=== PATIENT | female | born 1980 | race Caucasian/White ===

== ENCOUNTER 2017-08-27 13:52 | Emergency (ER) | payer MEDICAID ==
[2017-08-27] MEDS ORDERED: IBUPROFEN 600 MG TAB PO STA (14:05)
[2017-08-27] MEDS ORDERED: ACETAMINOPHEN TAB 325 MG TAB PO STA (14:05)
[2017-08-27] MEDS ORDERED: MECLIZINE 12.5 MG TAB PO STA (14:07)
--- NOTE | 2017-08-27 14:14 | ED ---
General Adult HPI - General Chief complaint: Upper Respiratory Infection Stated complaint: Cough Time Seen by Provider: 08/27/17 13:54 Source: patient Mode of arrival: ambulatory - History of Present Illness Initial comments: 36-year-old female patient presented to the emergency department today for evaluation of cough and dizziness 2 weeks. Patient states that he has had a persistent, nagging cough for the last 2 weeks. States that she has coughing episodes where she is unable to stop and her chest becomes very tight. She states that the dizziness is unrelated to the coughing, states that she could just be sitting down doing nothing and not moving when the dizziness will hit her. States that she feels like the room is spinning. States that she gets frequent episodes every day. She denies any ear pain, ear congestion, or ear drainage. She denies any nasal congestion or sore throat throughout the history of the cough. Denies any known fevers. States that she feels generally rundown and unwell. Patient denies any recent rash, shortness breath, chest pain, abdominal pain, nausea, vomiting, diarrhea, constipation, back pain , numbness, tingling, hematuria, dysuria, urinary urgency, urinary frequency, headache, visual changes, or any other complaints. Denies any chance of , states she had a negative test a couple days ago. - Related Data Previous Rx's Medication Instructions Recorded Albuterol Sulfate [Proair Hfa] 1 - 2 puff INHALATION Q6HR PRN #1 08/27/17 inhaler Azithromycin [Zithromax Z-pack] 0 mg PO DIRECTED #6 tab 08/27/17 Benzonatate [Tessalon Perles] 200 mg PO TID PRN #20 capsule 08/27/17 predniSONE 50 mg PO DAILY #5 tablet 08/27/17 Allergies Allergy/AdvReac Type Severity Reaction Status Date / Time No Known Allergies Allergy Verified 08/27/17 14:47 Review of Systems ROS Statement: Those systems with pertinent positive or pertinent negative responses have been documented in the HPI. ROS Other: All systems not noted in ROS Statement are negative. Past Medical History Past Medical History: No Reported History History of Any Multi-Drug Resistant Organisms: None Reported Past Surgical History: No Surgical Hx Reported Past Psychological History: No Psychological Hx Reported Smoking Status: Former smoker Past Alcohol Use History: None Reported Past Drug Use History: None Reported General Exam General appearance: alert, in no apparent distress, other (physical well- developed, well-nourished adult female patient in no acute distress. Vital signs upon presentation are temperature 100.3F, pulse 1:30, respirations 18, blood pressure 164/94, pulse ox 99% on room air.) Eye exam: Present: normal appearance, PERRL, EOMI. Absent: scleral icterus, conjunctival injection, periorbital swelling ENT exam: Present: normal exam, mucous membranes moist, TM's normal bilaterally. Absent: normal oropharynx (pharyngeal erythema) Neck exam: Present: normal inspection. Absent: tenderness, meningismus, lymphadenopathy Respiratory exam: Present: normal lung sounds bilaterally. Absent: respiratory distress, wheezes, rales, rhonchi, stridor Cardiovascular Exam: Present: normal rhythm, tachycardia, normal heart sounds. Absent: systolic murmur, diastolic murmur, rubs, gallop, clicks GI/Abdominal exam: Present: soft, normal bowel sounds. Absent: distended, tenderness, guarding, rebound, rigid Neurological exam: Present: alert, oriented X3, CN II-XII intact Psychiatric exam: Present: normal affect, normal mood Skin exam: Present: warm, dry, intact, normal color. Absent: rash Course Vital Signs 08/27/17 08/27/17 08/27/17 13:55 15:07 15:12 Temperature 100.3 F H 98.6 F Pulse Rate 130 H 108 H Respiratory 20 20 Rate Blood Pressure 164/94 132/82 O2 Sat by Pulse 99 98 Oximetry 08/27/17 08/27/17 15:54 16:47 Temperature 98.4 F Pulse Rate 91 90 Respiratory 18 16 Rate Blood Pressure 143/88 122/75 O2 Sat by Pulse 99 98 Oximetry EKG Findings - EKG Comments: EKG Findings:: EKG obtained at 1431 shows sinus tachycardia with a possible inferior infarct, anterior infarct, and ST and T-wave abnormalities. No previous EKGs for comparison. Medical Decision Making - Medical Decision Making 36-year-old female patient presented to the emergency department today for evaluation of cough 2 weeks. Physical examination did reveal a dry hacking cough throughout exam. Lungs are clear to auscultation with good air movement. Labs reviewed and did reveal a low TSH level but T4 levels were normal. Patient was mildly febrile upon arrival. She did have some tachycardia. Vital signs did improve with antipyretics and IV fluids. Dizziness improved on him marginally. Patient will be given azithromycin for a probable bacterial bronchitis. She'll be given a course of steroids, Tessalon Perles, and a Pro Air inhaler for symptom relief. She is instructed to follow-up with her primary care doctor for recheck in 1-2 days. She is instructed to return here immediately for any new, worsening, or concerning symptoms. She verbalizes understanding and agrees with this plan. - Lab Data Result diagrams: 08/27/17 14:19 08/27/17 14:19 Lab Results 08/27/17 08/27/17 08/27/17 Range/Units 13:52 13:52 14:19 WBC (3.8-10.6) k/uL RBC (3.80-5.40) m/uL Hgb (11.4-16.0) gm/dL Hct (34.0-46.0) % MCV (80.0-100.0) fL MCH (25.0-35.0) pg MCHC (31.0-37.0) g/dL RDW (11.5-15.5) % Plt Count (150-450) k/uL Neutrophils % % Lymphocytes % % Monocytes % % Eosinophils % % Basophils % % Neutrophils # (1.3-7.7) k/uL Lymphocytes # (1.0-4.8) k/uL Monocytes # (0-1.0) k/uL Eosinophils # (0-0.7) k/uL Basophils # (0-0.2) k/uL Sodium (137-145) mmol/L Potassium (3.5-5.1) mmol/L Chloride (98-107) mmol/L Carbon Dioxide (22-30) mmol/L Anion Gap mmol/L BUN (7-17) mg/dL Creatinine (0.52-1.04) mg/dL Est GFR (MDRD) Af Amer (>60 ml/min/1.73 sqM) Est GFR (MDRD) Non-Af (>60 ml/min/1.73 sqM) Glucose (74-99) mg/dL Plasma Lactic Acid Luisito (0.7-2.0) mmol/L Calcium (8.4-10.2) mg/dL Total Bilirubin (0.2-1.3) mg/dL AST (14-36) U/L ALT (9-52) U/L Alkaline Phosphatase (38-126) U/L Total Protein (6.3-8.2) g/dL Albumin (3.5-5.0) g/dL TSH (0.465-4.680) mIU/L Free T4 (0.78-2.19) ng/dL Urine Color Light Yellow Urine Appearance Clear (Clear) Urine pH 6.5 (5.0-8.0) Ur Specific [place] 1.004 (1.001-1.035) Urine Protein Negative (Negative) Urine Glucose (UA) Negative (Negative) Urine Ketones Negative (Negative) Urine Blood Negative (Negative) Urine Nitrite Negative (Negative) Urine Bilirubin Negative (Negative) Urine Urobilinogen <2.0 (<2.0) mg/dL Ur Leukocyte Esterase Negative (Negative) Urine HCG, Qual Not Detected (Not Detectd) Influenza Type A RNA Not Detected (Not Detectd) Influenza Type B (PCR) Not Detected (Not Detectd) 08/27/17 08/27/17 08/27/17 Range/Units 14:19 14:19 14:19 WBC 5.2 (3.8-10.6) k/uL RBC 4.56 (3.80-5.40) m/uL Hgb 13.0 (11.4-16.0) gm/dL Hct 38.6 (34.0-46.0) % MCV 84.7 (80.0-100.0) fL MCH 28.5 (25.0-35.0) pg MCHC 33.6 (31.0-37.0) g/dL RDW 12.7 (11.5-15.5) % Plt Count 176 (150-450) k/uL Neutrophils % 81 % Lymphocytes % 8 % Monocytes % 5 % Eosinophils % 4 % Basophils % 0 % Neutrophils # 4.1 (1.3-7.7) k/uL Lymphocytes # 0.4 L (1.0-4.8) k/uL Monocytes # 0.3 (0-1.0) k/uL Eosinophils # 0.2 (0-0.7) k/uL Basophils # 0.0 (0-0.2) k/uL Sodium 144 (137-145) mmol/L Potassium 3.9 (3.5-5.1) mmol/L Chloride 105 (98-107) mmol/L Carbon Dioxide 25 (22-30) mmol/L Anion Gap 14 mmol/L BUN 8 (7-17) mg/dL Creatinine 0.70 (0.52-1.04) mg/dL Est GFR (MDRD) Af Amer >60 (>60 ml/min/1.73 sqM) Est GFR (MDRD) Non-Af >60 (>60 ml/min/1.73 sqM) Glucose 95 (74-99) mg/dL Plasma Lactic Acid Luisito 1.4 (0.7-2.0) mmol/L Calcium 10.2 (8.4-10.2) mg/dL Total Bilirubin 0.5 (0.2-1.3) mg/dL AST 19 (14-36) U/L ALT 28 (9-52) U/L Alkaline Phosphatase 50 (38-126) U/L Total Protein 8.1 (6.3-8.2) g/dL Albumin 5.0 (3.5-5.0) g/dL TSH 0.267 L (0.465-4.680) mIU/L Free T4 1.45 (0.78-2.19) ng/dL Urine Color Urine Appearance (Clear) Urine pH (5.0-8.0) Ur Specific [place] (1.001-1.035) Urine Protein (Negative) Urine Glucose (UA) (Negative) Urine Ketones (Negative) Urine Blood (Negative) Urine Nitrite (Negative) Urine Bilirubin (Negative) Urine Urobilinogen (<2.0) mg/dL Ur Leukocyte Esterase (Negative) Urine HCG, Qual (Not Detectd) Influenza Type A RNA (Not Detectd) Influenza Type B (PCR) (Not Detectd) - Radiology Data Radiology results: report reviewed, image reviewed Two-view x-ray of the chest shows no focal airspace opacity, pleural effusion, or pneumothorax. The cardiac silhouette size is within normal limits. The osseous structures are intact. Impression by Dr. Pryor shows no acute cardiopulmonary process. Disposition Clinical Impression: Acute bacterial bronchitis, Dizziness Disposition: HOME SELF-CARE Condition: Good Instructions: Acute Bronchitis (ED), Dizziness (ED) Additional Instructions: Increase fluids. Take medications as directed. Rest. Follow-up with her primary care physician for recheck in 1-2 days. Return here immediately for any new, worsening, or concerning symptoms. Prescriptions: Albuterol Sulfate [Proair Hfa] 1 - 2 puff INHALATION Q6HR PRN #1 inhaler PRN Reason: Cough Azithromycin [Zithromax Z-pack] 0 mg PO DIRECTED #6 tab Benzonatate [Tessalon Perles] 200 mg PO TID PRN #20 capsule PRN Reason: Cough predniSONE 50 mg PO DAILY #5 tablet Referrals: Marika Rocha III, MD [Primary Care Provider] - 1-2 days Time of Disposition: 16:28
[2017-08-27] MEDS ORDERED: SODIUM CHLORIDE 0.9% 1,000 ML IV ONE (14:19)
[2017-08-27 14:43] LABS: Basophils % (A) 0 %; Eosinophils # (A) 0.2 k/uL (0-0.7); Eosinophils % (A) 4 %; HCT 38.6 % (34.0-46.0); Lymphocytes # (A) 0.4 k/uL (1.0-4.8); Lymphocytes % (A) 8 %; MCH 28.5 pg (25.0-35.0); MCHC 33.6 g/dL (31.0-37.0); MCV 84.7 fL (80.0-100.0); Mean Platelet Volume 7.1; Monocytes # (A) 0.3 k/uL (0-1.0); Monocytes % (A) 5 %; Neutrophils # (A) 4.1 k/uL (1.3-7.7); Neutrophils % (A) 81 %; Platelet Count 176 k/uL (150-450); RBC 4.56 m/uL (3.80-5.40); RDW 12.7 % (11.5-15.5); WBC 5.2 k/uL (3.8-10.6)
[2017-08-27 14:46] LABS: ALT 28 U/L (9-52); AST 19 U/L (14-36); Alkaline Phosphatase 50 U/L (38-126); Anion Gap 14 mmol/L; Blood Urea Nitrogen 8 mg/dL (7-17); Calcium 10.2 mg/dL (8.4-10.2); Carbon Dioxide 25 mmol/L (22-30); Chloride 105 mmol/L (98-107); Glucose 95 mg/dL (74-99); Potassium 3.9 mmol/L (3.5-5.1); Sodium 144 mmol/L (137-145); Total Bilirubin 0.5 mg/dL (0.2-1.3); Total Protein 8.1 g/dL (6.3-8.2)
--- NOTE | 2017-08-27 14:57 | XR ---
EXAMINATION TYPE: XR chest 2V DATE OF EXAM: 08/27/2017 COMPARISON: NONE HISTORY: Fever TECHNIQUE: Frontal and lateral views of the chest are obtained. FINDINGS: There is no focal air space opacity, pleural effusion, or pneumothorax seen. The cardiac silhouette size is within normal limits. The osseous structures are intact. IMPRESSION: No acute cardiopulmonary process.
[2017-08-27] MEDS ORDERED: methylPREDNISolone SOD SUCCI 125 MG/2 ML VIAL IV STA (15:35)
[2017-08-27 16:02] LABS: T4, Free (Free Thyroxine) 1.45 ng/dL (0.78-2.19)
[2017-08-27 16:09] LABS: Appearance,Urine Clear (Clear); Bilirubin,Urine Negative (Negative); Blood,Urine Negative (Negative); Color,Urine Light Yellow; Glucose,Urine (UA) Negative (Negative); Ketones,Urine Negative (Negative); Leukocyte Esterase,Urine Negative (Negative); Nitrite,Urine Negative (Negative); PH, Urine 6.5 (5.0-8.0); Protein,Urine Negative (Negative); Specific Gravity,Urine 1.004 (1.001-1.035); Urobilinogen,Urine <2.0 mg/dL (<2.0)
[2017-08-27] MEDS ORDERED: BENZONATATE 100 MG CAP PO STA (16:27)
[2017-08-27 16:50] VITALS: BP 122/75; PULSE 90; RESP 16; TEMP 98.4
== END 2017-08-27 16:47 | disposition home or self-care (01) ==
LOC: EC 13:52
DX: J20.8 Acute bronchitis due to other specified organisms (principal); B96.89 Other specified bacterial agents as the cause of diseases classified elsewhere; R42 Dizziness and giddiness; R00.0 Tachycardia, unspecified; Z87.891 Personal history of nicotine dependence
CPT/HCPCS: 36415; 93005; 84439; 80053; 84443; 83605; 85025; 81003; 81025; 87040; 87086; 87502; 71046; 99284; 96374; 96361; J2930

== ENCOUNTER → 2017-08-30 | Outpatient (CLI) | payer MEDICAID | END | disposition home or self-care (01) | LOC: LABMAIN 11:24 | PROVIDERS: ATTEND Nurse Practitioner Family | DX: R07.89 Other chest pain (principal) | CPT/HCPCS: 36415; 85379 ==

== ENCOUNTER → 2017-09-06 | Outpatient (CLI) | payer MEDICAID ==
--- NOTE | 2017-09-06 15:22 | XR ---
Mandible HISTORY: Right-sided submandibular pain and swelling, submandibular sialoadenitis 5 views of the mandible Bone mineralization is maintained. There is no fracture or dislocation evident. IMPRESSION: No significant abnormality, CT scan of the neck may be of benefit
== END | disposition home or self-care (01) ==
LOC: RADXRMAIN 13:31
PROVIDERS: ATTEND Otolaryngology
DX: K11.23 Chronic sialoadenitis (principal)
CPT/HCPCS: 70110

== ENCOUNTER → 2017-09-20 | Outpatient (CLI) | payer MEDICAID ==
--- NOTE | 2017-09-21 12:11 | ECHOF ---
Referral Reason:Fatigue R53.83 MEASUREMENTS -------- HEIGHT: 154.9 cm WEIGHT: 55.3 kg BP: 134/76 RVIDd: 2.9 cm (< 3.3) IVSd: 1.1 cm (0.6 - 1.1) LVIDd: 3.9 cm (3.9 - 5.3) LVPWd: 1.0 cm (0.6 - 1.1) IVSs: 1.2 cm LVIDs: 2.7 cm LVPWs: 1.2 cm LAESV Index (A-L): 21.78 ml/m Ao Diam: 3.0 cm (2.0 - 3.7) AV Cusp: 1.8 cm (1.5 - 2.6) LA Diam: 1.7 cm (2.7 - 3.8) MV EXCURSION: 17.310 mm (> 18.000) MV EF SLOPE: 110 mm/s (70 - 150) EPSS: 0.6 cm MV E Tahir: 0.83 m/s MV DecT: 309 ms MV A Tahir: 0.39 m/s MV E/A Ratio: 2.09 AR PHT: 578 ms FINDINGS -------- Sinus rhythm. This was a technically good study. The left ventricular size is normal. Left ventricular wall thickness is normal. Overall left vent ricular systolic function is normal with, an EF between 55 - 60 %. The right ventricle is normal in size and function. Normal LA size by volume 22+/-6 ml/m2. The right atrium is normal in size. Aortic valve is trileaflet and is mildly thickened. There is [id number] aortic regurgitation. The aortic pressure half-time by doppler is 578ms. The mitral valve is normal. Mild mitral regurgitation is present. Mild tricuspid regurgitation present. Right ventricular systolic pressure is normal at < 35 mmHg. There is no evidence of pulmonary hypertension. There is no pulmonic regurgitation present. The aortic root size is normal. Normal inferior vena cava with normal inspiratory collapse consistent with estimated right atrial pre ssure of 5 mmHg. There is no pericardial effusion. CONCLUSIONS -------- 1. Sinus rhythm. 2. This was a technically good study. 3. The left ventricular size is normal. 4. Left ventricular wall thickness is normal. 5. Overall left ventricular systolic function is normal with, an EF between 55 - 60 %. 6. Normal LA size by volume 22+/-6 ml/m2. 7. Aortic valve is trileaflet and is mildly thickened. 8. There is [id number] aortic regurgitation. 9. The aortic pressure half-time by doppler is 578ms. 10. Mild mitral regurgitation is present. 11. Mild tricuspid regurgitation present. 12. Right ventricular systolic pressure is normal at < 35 mmHg. 13. There is no pulmonic regurgitation present. 14. The aortic root size is normal. 15. There is no pericardial effusion. [employer] TEACHER: Lane Roth RDCS
== END | disposition home or self-care (01) ==
LOC: RADECHMAIN 13:43
PROVIDERS: ATTEND Internal Medicine Clinical Cardiac Electrophysiology
DX: I08.3 Combined rheumatic disorders of mitral, aortic and tricuspid valves (principal); B34.9 Viral infection, unspecified
CPT/HCPCS: 93306